=== PATIENT | male | born 2000 | race Hispanic/Latino ===

== ENCOUNTER 2020-04-15 00:20 | Emergency (ER) | payer SELFPAY ==
[2020-04-15 01:13] LABS: Absolute Lymphocytes (CBC) 3.4 K/uL (0.7-4.9); Basophils % 1.3 % (0-1.3); Hematocrit 47.5 % (39.6-49.0); Lymphocytes % 34.3 % (15.3-44.8); MPV 9.4 fL (7.6-11.3); RBC Red Blood Cell Count 5.67 M/uL (4.33-5.43)
[2020-04-15 01:16] LABS: Protime INR 1.04
[2020-04-15 01:24] LABS: Urine Blood NEGATIVE (NEG); Urine Glucose NEGATIVE (NEG); Urine Protein 1+ (NEG); Urine Specific Gravity >1.030 (1.005-1.030)
[2020-04-15 01:26] LABS: Barbiturates NEGATIVE (NEGATIVE); Benzodiazepines NEGATIVE (NEGATIVE); Cocaine NEGATIVE (NEGATIVE); METHAMPHETAM NEGATIVE (NEGATIVE); Methadone NEGATIVE (NEGATIVE); Opiates NEGATIVE (NEGATIVE); Phencyclidine NEGATIVE (NEGATIVE); THC Cannibis NEGATIVE (NEGATIVE)
[2020-04-15 01:34] LABS: ALT/SGPT 91 U/L (12-78); AST/SGOT 26 U/L (15-37); Albumin 4.3 g/dL (3.4-5.0); Alkaline Phosphatase 78 U/L (45-117); BUN Blood Urea Nitrogen 12 mg/dL (7-18); Bicarbonate 22 mmol/L (21-32); Bilirubin Direct < 0.1 mg/dL (0-0.2); Bilirubin Total 0.6 mg/dL (0.2-1.0); Glucose Level 93 mg/dL (74-106); Potassium 3.8 mmol/L (3.5-5.1); Protein, Total 8.6 g/dL (6.4-8.2); Sodium Level 136 mmol/L (136-145)
--- NOTE | 2020-04-15 05:30 | ER ---
Nurse's Notes [facility] Name: Marily López JR. Age: 19 yrs Sex: Male : 2000 Arrival Date: 04/15/2020 Time: 00:26 Bed 6 Private MD: Diagnosis: Suicidal ideations;Adjustment disorder with depressed mood Presentation: 04/15 00:41 Chief complaint: Patient states: suicidal thoughts for the last 2 weeks after events lp1 occurred leading to girlfriend breaking up with him; states googling how to make a noose; states previous SI in high school with attempt. Coronavirus screen: Client denies travel out of the [place] in the last 14 days. At this time, the client does not indicate any symptoms associated with coronavirus-19. Ebola Screen: No symptoms or risks identified at this time. Initial Sepsis Screen: Does the patient meet any 2 criteria? No. Patient's initial sepsis screen is negative. Does the patient have a suspected source of infection? No. Patient's initial sepsis screen is negative. Risk Assessment: Do you want to hurt yourself or someone else? Patient reports no desire to harm self or others. Onset of symptoms was April 15, 2020. 00:41 Method Of Arrival: Ambulatory lp1 00:41 Acuity: ROSIE 2 lp1 Historical: - Allergies: 00:45 No Known Allergies; lp1 - Home Meds: 00:45 None [Active]; lp1 - PMHx: 00:45 None; lp1 - PSHx: 00:45 None; lp1 - Immunization history:: Adult Immunizations up to date. - Social history:: Smoking status: Reported history of juuling and/or vaping. Patient uses street drugs, marijuana. - Family history:: not pertinent. - Hospitalizations: : No recent hospitalization is reported. Screenin:45 Abuse screen: Denies threats or abuse. Denies injuries from another. Nutritional lp1 screening: No deficits noted. Tuberculosis screening: No symptoms or risk factors identified. Fall Risk None identified. Assessment: 00:55 General: Appears in no apparent distress. comfortable, Behavior is calm, cooperative, rr5 Reports suicidal thoughts. Pain: Denies pain. Neuro: Level of Consciousness is awake, alert, obeys commands, Oriented to person, place, time, situation. Cardiovascular: Capillary refill < 3 seconds Patient's skin is warm and dry. Respiratory: Airway is patent Respiratory effort is even, unlabored, Respiratory pattern is regular, symmetrical. GI: No signs and/or symptoms were reported involving the gastrointestinal system. : No signs and/or symptoms were reported regarding the genitourinary system. EENT: No signs and/or symptoms were reported regarding the EENT system. Derm: Skin is intact, Skin temperature is warm. Musculoskeletal: No signs and/or symptoms reported regarding the musculoskeletal system. 02:00 Reassessment: Patient appears in no apparent distress at this time. No changes from rr5 previously documented assessment. Patient is alert, oriented x 3, equal unlabored respirations, skin warm/dry/pink. 03:00 Reassessment: Patient appears in no apparent distress at this time. No changes from jd3 previously documented assessment. Patient and/or family updated on plan of care and expected duration. Pain level reassessed. Patient is alert, oriented x 3, equal unlabored respirations, skin warm/dry/pink. 04:00 Reassessment: Patient appears in no apparent distress at this time. Patient and/or jd3 family updated on plan of care and expected duration. Pain level reassessed. Patient is alert, oriented x 3, equal unlabored respirations, skin warm/dry/pink. talking with [facility] rep at this time. 05:00 Reassessment: Patient appears in no apparent distress at this time. Patient and/or jd3 family updated on plan of care and expected duration. Pain level reassessed. Patient is alert, oriented x 3, equal unlabored respirations, skin warm/dry/pink. pt finishing up with [facility]. 06:00 Reassessment: Patient appears in no apparent distress at this time. Patient and/or jd3 family updated on plan of care and expected duration. Pain level reassessed. Patient is alert, oriented x 3, equal unlabored respirations, skin warm/dry/pink. provider talking with [facility] and made a decision to transfer pt. awaiting transfer. 08:50 Reassessment: Patient appears in no apparent distress at this time. Patient and/or iw family updated on plan of care and expected duration. Pain level reassessed. Patient is alert, oriented x 3, equal unlabored respirations, skin warm/dry/pink. Dr. Quinn at bedside to assess patient, will attempt to call pt sister with plans to discharge pt home. Psych: 00:50 Subjective: Patient's mood is sad. Objective: Patient is cooperative, Speech is normal, rr5 Affect is appropriate. Interventions: Removed personal items and placed in bag. Patient placed in hospital gown. Searched person for dangerous items. Urine collected and sent for urine drug test. Belonging list filled out. 00:50 Suicide Risk Assessment: Sad Person Scale: Sex of patient: Male: Score 1 point. Age of rr5 patient: Score 1 point if patient 15-34. Depression: Score 1 point if signs of depression are present. Previous Attempt: Score 1 point if patient has previously attempted suicide. Substance Abuse: Score 1 point if patient abuses alcohol or drugs. Rational Thinking: Score 0 point if patient has rational thinking. Social Support: Score 0 if social support is present/available. Organized Plan: Score 1 point if patient had a plan in place. Relationship: Score 1 point if patient is , , , or for a single male Chronic Sickness: Score 0 point if patient does not have a chronic illness, debilitating, or severe disorder. TOTAL POINTS: If total points are 7-10, the proposed clinical action is to hospitalize or commit. Implement suicide precautions. Safety Checks: Personal items have been removed. Pt has been placed in a hallway bed/chair. Door is open. Patient uses marijuana. Commitment: Patient will be a voluntary commitment. Vital Signs: 00:41 BP 133 / 94; Pulse 67; Resp 18; Temp 98.7(O); Pulse Ox 98% on R/A; Weight 95.25 kg (R); lp1 Height 5 ft. 10 in. (177.80 cm); Pain 0/10; 00:41 Body Mass Index 30.13 (95.25 kg, 177.80 cm) lp1 ED Course: 00:26 Patient arrived in ED. ag3 00:27 Yoav Butler MD is Attending Physician. rn 00:29 Arnoldo Rodriguez RN is Primary Nurse. rr5 00:44 Triage completed. lp1 00:44 Arm band placed on. lp1 00:50 EKG done, by ED staff, reviewed by Yoav Butler MD. rr5 00:55 Urine collected: clean catch specimen, clear. rr5 00:56 Safety Checks: Personal items have been removed. The door is open or patient has been rr5 placed in a hallway bed/chair. Sitter present at this time. 00:56 Patient has correct armband on for positive identification. rr5 01:05 No provider procedures requiring assistance completed. Inserted saline lock: 20 gauge rr5 in right antecubital area, using aseptic technique. ,using aseptic technique. inserted by [employer]. 01:18 Valuables inventory done. See valuables checklist. given to security. rr5 07:25 Attending Physician role handed off by Yoav Butler MD [facility] 07:25 Timbo Quinn MD is Attending Physician. ton 09:00 IV discontinued, intact, bleeding controlled, No redness/swelling at site. Pressure iw dressing applied. 09:09 Omkar Rae MD is Referral Physician. ton 10:12 Primary Nurse role handed off by Arnoldo Rodriguez RN iw 10:12 Chantale Romeo RN is Primary Nurse. iw Administered Medications: No medications were administered Outcome: 05:30 ER care complete, transfer ordered by . rn 09:10 Discharge ordered by . ton 10:11 Discharged to home ambulatory, with family, discharged with sister, pt denies SI upon iw discharge 10:11 Condition: improved 10:11 Discharge instructions given to patient, family, Instructed on discharge instructions, follow up and referral plans. Demonstrated understanding of instructions, follow-up care. 10:12 Patient left the ED. iw Signatures: Timbo Quinn MD MD cha Williams, Irene, RN RN iw Yoav Butler MD MD rn Pena, Laura, RN RN lp1 Nicolas Burk RN RN jd3 Connie Pavon Raymond, RN RN rr5
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
[2020-04-15 10:20] VITALS: BP 133/94; TEMP 98.7; O2SAT 98
== END 2020-04-15 10:12 | disposition home or self-care (01) ==
LOC: ER 00:20
DX: F43.21 Adjustment disorder with depressed mood (principal); Z87.891 Personal history of nicotine dependence
CPT/HCPCS: 36415; 80048; 80076; 80307; 80320; 80329; 81003; 85025; 85610; 85730; 93005; 99284

== ENCOUNTER 2020-09-11 09:56 | Emergency (ER) | payer SELFPAY ==
[2020-09-11] MEDS ORDERED: LIDOCAINE 1% MPF 5 ML VIAL ONE (11:37)
[2020-09-11] MEDS ORDERED: BUPIVACAINE 0.5% PF 10 ML VIAL ONE (11:37)
--- NOTE | 2020-09-11 11:58 | EDPHYS ---
Physician Documentation [facility] Name: Marily López Jr Age: 20 yrs Sex: Male : 2000 Arrival Date: 09/11/2020 Time: 09:59 Bed 25 Private MD: ED Physician Yoav Butler HPI: 09/11 10:40 This 20 yrs old Male presents to ER via Ambulatory with complaints of Cyst. [facility] 10:40 This is a 20 year old male that presents to the ED with complaints of swelling to the [facility] lower tailbone region with a small amount of drainage. Denies fever. . Onset: The symptoms/episode began/occurred gradually, 1 week(s) ago. The patient has not experienced similar symptoms in the past. Historical: - Allergies: 10:39 No Known Allergies; iw - Home Meds: 10:39 None [Active]; iw - PMHx: 10:39 None; iw - PSHx: 10:39 None; iw - Immunization history:: Adult Immunizations. - Social history:: Smoking status: Patient denies any tobacco usage or history of. ROS: 10:40 Constitutional: Negative for fever, chills, and weight loss, Cardiovascular: Negative [facility] for chest pain, palpitations, and edema, Respiratory: Negative for shortness of breath, cough, wheezing, and pleuritic chest pain. 10:40 Skin: Positive for abscess. 10:40 All other systems are negative. Exam: 10:40 Constitutional: This is a well developed, well nourished patient who is awake, alert, jmm and in no acute distress. Head/Face: atraumatic. Eyes: EOMI, no conjunctival erythema appreciated ENT: Moist Mucus Membranes Neck: Trachea midline, Supple Chest/axilla: Normal chest wall appearance and motion. Cardiovascular: Regular rate and rhythm. No edema appreciated Respiratory: Normal respirations, no respiratory distress appreciated Abdomen/GI: Non distended, soft Back: Normal ROM 10:40 Skin: pilonidal cyst noted, mild induration. 10:40 Neuro: Orientation: is normal, Mentation: is normal, Memory: is normal. 10:40 Psych: Behavior/mood is pleasant, cooperative. Vital Signs: 10:38 Pulse 89; Resp 18; Temp 98.5; Pulse Ox 98% on R/A; Weight 97.52 kg; Height 5 ft. 10 in. iw (177.80 cm); 10:38 Body Mass Index 30.85 (97.52 kg, 177.80 cm) Procedures: 11:56 I \T\ D: Incision and drainage was performed for an abscess of the pilonidal cyst Prepped [facility] with Betadine, Anesthetized with 5 ml's 1% Lidocaine. 10 ml 0.5% marcaine. Incised with #11 blade. Drained large amount purulent fluid. Packed with iodoform gauze, Dressing: sterile 4x4 gauze, the patient tolerated the procedure well. MDM: 10:39 Patient medically screened. [facility] 11:56 Data reviewed: vital signs, nurses notes. Counseling: I had a detailed discussion with [facility] the patient and/or guardian regarding: the historical points, exam findings, and any diagnostic results supporting the discharge/admit diagnosis, the need for outpatient follow up, to return to the emergency department if symptoms worsen or persist or if there are any questions or concerns that arise at home. ED course: Patient given wound infection return precautions. Patient understood and agrees with the plan of care. . Administered Medications: No medications were administered Disposition: 13:23 Co-signature as Attending Physician, Yoav Butler MD. rn Disposition: 09/11/20 11:58 Discharged to Home. Impression: Pilonidal cyst with abscess. - Condition is Stable. - Discharge Instructions: Incision and Drainage, Pilonidal Cyst. - Prescriptions for Tylenol- Codeine #3 300-30 mg Oral Tablet - take 1 tablet by ORAL route every 6 hours As needed; 12 tablet. Doxycycline Hyclate 100 mg Oral Tablet - take 1 tablet by ORAL route every 12 hours; 20 tablet. Bactrim DS 800- 160 mg Oral Tablet - take 1 tablet by ORAL route every 12 hours for 10 days; 20 tablet. - Medication Reconciliation Form, Thank You Letter, Antibiotic Education, Prescription Opioid Use form. - Follow up: Adryan Obrien MD; When: 1 week; Reason: Recheck today's complaints, Continuance of care, Re-evaluation by your physician. Signatures: Josias Gonzalez PA PA [facility] Chantale Romeo RN RN Yoav Butler MD MD furniture arranger: (The following items were deleted from the chart) 12:21 11:58 09/11/2020 11:58 Discharged to Home. Impression: Pilonidal cyst with abscess. iw Condition is Stable. Forms are Medication Reconciliation Form, Thank You Letter, Antibiotic Education, Prescription Opioid Use. Follow up: Adryan Obrien; When: 1 week; Reason: Recheck today's complaints, Continuance of care, Re-evaluation by your physician. mis
--- NOTE | 2020-09-11 11:58 | ER ---
Nurse's Notes [facility] Name: Marily López Jr Age: 20 yrs Sex: Male : 2000 Arrival Date: 09/11/2020 Time: 09:59 Bed 25 Private MD: Diagnosis: Pilonidal cyst with abscess Presentation: 09/11 10:38 Chief complaint: Patient states: thinks he has a pilonidal cyst X 5 days. Coronavirus iw screen: At this time, the client does not indicate any symptoms associated with coronavirus-19. Ebola Screen: Patient negative for fever greater than or equal to 101.5 degrees Fahrenheit, and additional compatible Ebola Virus Disease symptoms Patient denies exposure to infectious person. Patient denies travel to an Ebola-affected area in the 21 days before illness onset. No symptoms or risks identified at this time. Initial Sepsis Screen: Does the patient meet any 2 criteria? No. Patient's initial sepsis screen is negative. Does the patient have a suspected source of infection? No. Patient's initial sepsis screen is negative. Risk Assessment: Do you want to hurt yourself or someone else? Patient reports no desire to harm self or others. Onset of symptoms was September 06, 2020. 10:38 Method Of Arrival: Ambulatory iw 10:38 Acuity: ROSIE 4 iw Triage Assessment: 12:20 General: Appears in no apparent distress. Behavior is calm, cooperative. iw Historical: - Allergies: 10:39 No Known Allergies; iw - Home Meds: 10:39 None [Active]; iw - PMHx: 10:39 None; iw - PSHx: 10:39 None; iw - Immunization history:: Adult Immunizations. - Social history:: Smoking status: Patient denies any tobacco usage or history of. Screenin:20 Abuse screen: Denies threats or abuse. Denies injuries from another. Nutritional iw screening: No deficits noted. Tuberculosis screening: No symptoms or risk factors identified. Fall Risk None identified. Assessment: 10:45 General: Appears in no apparent distress. Behavior is calm, cooperative. Pain: iw Complains of pain in coccyx. Neuro: Level of Consciousness is awake, alert, obeys commands, Oriented to person, place, time, situation, Moves all extremities. Cardiovascular: Patient's skin is warm and dry. Respiratory: Respiratory effort is even, unlabored, Respiratory pattern is regular. Derm: Skin is healthy with good turgor, Abscess located on coccyx. Musculoskeletal: Range of motion: intact in all extremities. Vital Signs: 10:38 Pulse 89; Resp 18; Temp 98.5; Pulse Ox 98% on R/A; Weight 97.52 kg; Height 5 ft. 10 in. iw (177.80 cm); 10:38 Body Mass Index 30.85 (97.52 kg, 177.80 cm) iw ED Course: 09:59 Patient arrived in ED. ag5 10:07 Josias Gonzalez PA is PHCP. mis 10:07 Yoav Butler MD is Attending Physician. [facility] 10:39 Triage completed. iw 10:40 Arm band placed on. iw 10:45 Patient has correct armband on for positive identification. iw 11:50 Assist provider with I \T\ D: of an abscess on pilonidal cyst Set up I\T\D tray. Performed iw by Josias DEL TORO Wound packed. iodoform gauze, Dressing with 4X4s, Patient tolerated well. 11:50 Patient did not have IV access during this emergency room visit. iw 11:57 Adryan Obrien MD is Referral Physician. [facility] 12:21 Chantale Romeo, RN is Primary Nurse. iw Administered Medications: No medications were administered Outcome: 11:58 Discharge ordered by . [facility] 12:20 Discharged to home ambulatory. iw 12:20 Condition: good 12:20 Discharge instructions given to patient, Instructed on discharge instructions, follow up and referral plans. medication usage, Demonstrated understanding of instructions, follow-up care, medications, Prescriptions given X 3. 12:21 Patient left the ED. iw Signatures: Josias Gonzalez PA PA jmm Williams, Irene, RN RN iw Jacqui Miranda ag5 Corrections: (The following items were deleted from the chart) 20:34 10:00 Assist provider with I \T\ D: iw iw
[2020-09-11 12:39] VITALS: TEMP 98.5; O2SAT 98
== END 2020-09-11 12:21 | disposition home or self-care (01) ==
LOC: ER 09:56
PROC: 0H98XZZ Drainage of Buttock Skin, External Approach (ICD-10-PCS; principal; 2020-09-11)
DX: L05.01 Pilonidal cyst with abscess (principal)
CPT/HCPCS: 99283